=== PATIENT | male | born 1955 | race Caucasian/White ===

== ENCOUNTER 2023-02-19 19:05 | Inpatient (IN) | payer MEDICARE, OTHER ==
[2023-02-19 22:28] LABS: #Basophils 0.1 thou/uL (0.0-0.2); #Eosinphils 0.1 thou/uL (0.0-0.7); #Monocytes 0.8 thou/uL (0.11-0.59); #Neutrophils 8.8 thou/uL (1.40-6.50); %Basophils 0.4 % (0.0-1.0); %Eosinophils 1.1 % (0.0-10.0); %Lymphocytes 17.1 % (21.0-51.0); %Monocytes 6.4 % (0.0-10.0); %Neutrophils 74.7 % (42.0-75.0); Hematocrit 35.7 % (42.0-52.0); Mean Corpuscular HGB CONC 36.4 g/dL (32.0-36.0); Mean Corpuscular Hemoglobin 33.2 pg (27.0-31.0); Mean Corpuscular Volume 91.3 fl (78.0-98.0); Platelet Count 242 10x3/uL (130-400); RBC Distribution Width 13.5 % (11.5-14.5); Red Blood Cell (RBC) Count 3.91 mill/uL (4.70-6.10); White Blood Cell (WBC) Count 11.8 10x3/uL (4.8-10.8)
[2023-02-19 22:43] LABS: PTT 33.6 sec (22.9-36.1); Prothrombin Time 13.8 sec (12.0-14.7)
[2023-02-19 22:54] LABS: ALT (SGPT) 23 U/L (8-55); AST (SGOT) 20 U/L (5-34); Albumin 4.6 g/dL (3.4-4.8); Alkaline Phosphatase 70 U/L (40-110); Anion Gap 13 mmol/L (10-20); BUN (Urea Nitrogen) 11 mg/dL (8.4-25.7); Calc. Creatinine Clearance 0 mL/min (70-130); Calcium 9.6 mg/dL (7.8-10.44); Carbon Dioxide 26 mmol/L (23-31); Chloride 97 mmol/L (98-107); Estimated GFR 64; Globulin 2.2 g/dL (2.4-3.5); Glucose 153 mg/dL (80-115); Lipase 13 U/L (8-78); Magnesium 1.9 mg/dL (1.6-2.6); Potassium 3.8 mmol/L (3.5-5.1); Protein, Total 6.8 g/dL (5.8-8.1); Sodium 132 mmol/L (136-145)
[2023-02-19 22:56] LABS: Troponin I Less than 0.010 ng/mL (< 0.028)
[2023-02-19 22:58] LABS: Bilirubin, Total 0.5 mg/dL (0.2-1.2)
[2023-02-19] MEDS ORDERED: Ondansetron PF 4 MG/2 ML Vial IVP PRN (23:41)
[2023-02-19] MEDS ORDERED: Calcium Carbonate 500 MG ChewTAB PO PRN (23:41)
[2023-02-19] MEDS ORDERED: Ondansetron ODT 4 MG TAB PO PRN (23:41)
[2023-02-19] MEDS ORDERED: Aspirin 81 mg Enteric Coated Tablet PO SCH (23:45)
[2023-02-19] MEDS ORDERED: Simvastatin 10 MG TAB PO SCH (23:45)
[2023-02-19] MEDS ORDERED: Tamsulosin HCl 0.4 MG CAP PO SCH (23:45)
[2023-02-20] MEDS ORDERED: Aspirin 81 mg Enteric Coated Tablet ONE (02:15)
[2023-02-20 02:37] LABS: Troponin I Less than 0.010 ng/mL (< 0.028)
[2023-02-20 04:39] LABS: #Eosinphils 0.2 thou/uL (0.0-0.7); #Monocytes 0.8 thou/uL (0.11-0.59); #Neutrophils 6.5 thou/uL (1.40-6.50); %Basophils 0.4 % (0.0-1.0); %Eosinophils 2.4 % (0.0-10.0); %Lymphocytes 22.2 % (21.0-51.0); %Monocytes 7.9 % (0.0-10.0); %Neutrophils 66.7 % (42.0-75.0); Hematocrit 37.9 % (42.0-52.0); Hemoglobin 13.6 g/dL (14.0-18.0); Mean Corpuscular HGB CONC 35.9 g/dL (32.0-36.0); Mean Corpuscular Hemoglobin 33.4 pg (27.0-31.0); Mean Corpuscular Volume 93.1 fl (78.0-98.0); Mean Platelet Volume 9.1 fL (7.4-10.4); Platelet Count 249 10x3/uL (130-400); RBC Distribution Width 13.4 % (11.5-14.5); Red Blood Cell (RBC) Count 4.07 mill/uL (4.70-6.10); White Blood Cell (WBC) Count 9.7 10x3/uL (4.8-10.8)
[2023-02-20 05:05] LABS: Anion Gap 13 mmol/L (10-20); BUN (Urea Nitrogen) 9 mg/dL (8.4-25.7); Calc. Creatinine Clearance 73 mL/min (70-130); Calcium 9.5 mg/dL (7.8-10.44); Carbon Dioxide 25 mmol/L (23-31); Chloride 101 mmol/L (98-107); Estimated GFR 82; Glucose 96 mg/dL (80-115); Potassium 4.1 mmol/L (3.5-5.1); Sodium 135 mmol/L (136-145)
[2023-02-20 05:07] LABS: Troponin I Less than 0.010 ng/mL (< 0.028)
[2023-02-20] MEDS ORDERED: Tamsulosin HCl 0.4 MG CAP PO SCH (09:00)
[2023-02-20] MEDS ORDERED: Aspirin Chewable 81 MG TAB ONE (09:11)
[2023-02-20] MEDS: Aspirin 81 mg Enteric Coated Tablet PO SCH (09:36)
[2023-02-20] MEDS: Simvastatin 10 MG TAB PO SCH (20:12)
[2023-02-20] MEDS: dilTIAZem SR 90 MG CAP PO SCH (20:12)
[2023-02-21 04:27] LABS: #Basophils 0.1 thou/uL (0.0-0.2); #Eosinphils 0.2 thou/uL (0.0-0.7); #Monocytes 0.7 thou/uL (0.11-0.59); #Neutrophils 5.7 thou/uL (1.40-6.50); %Basophils 0.6 % (0.0-1.0); %Eosinophils 2.6 % (0.0-10.0); %Lymphocytes 25.3 % (21.0-51.0); %Monocytes 7.7 % (0.0-10.0); %Neutrophils 63.6 % (42.0-75.0); Hematocrit 36.6 % (42.0-52.0); Hemoglobin 12.9 g/dL (14.0-18.0); Mean Corpuscular HGB CONC 35.2 g/dL (32.0-36.0); Mean Corpuscular Hemoglobin 33.2 pg (27.0-31.0); Mean Corpuscular Volume 94.1 fl (78.0-98.0); Mean Platelet Volume 9.1 fL (7.4-10.4); Platelet Count 239 10x3/uL (130-400); RBC Distribution Width 13.5 % (11.5-14.5); Red Blood Cell (RBC) Count 3.89 mill/uL (4.70-6.10)
[2023-02-21 04:52] LABS: Anion Gap 13 mmol/L (10-20); BUN (Urea Nitrogen) 13 mg/dL (8.4-25.7); Calc. Creatinine Clearance 0 mL/min (70-130); Calcium 8.8 mg/dL (7.8-10.44); Carbon Dioxide 24 mmol/L (23-31); Cardiac Risk 3.1 (Less than 4.5); Chloride 100 mmol/L (98-107); Cholesterol 127 mg/dl (< 200 Desired); Estimated GFR 87; Glucose 86 mg/dL (80-115); HDL Cholesterol 41 mg/dL (>60 Neg Risk); LDL Cholesterol, Calculated 73 mg/dL; Sodium 133 mmol/L (136-145); Triglycerides 65 mg/dL (Less than 150)
[2023-02-21] MEDS ORDERED: Regadenoson 0.4 MG/5 ML SYRINGE ONE (08:03)
[2023-02-21] MEDS: Aspirin 81 mg Enteric Coated Tablet PO SCH (08:38)
[2023-02-21] MEDS: Tamsulosin HCl 0.4 MG CAP PO SCH (08:38)
[2023-02-21] MEDS: dilTIAZem SR 90 MG CAP PO SCH ×2 (08:38→20:03)
[2023-02-21] MEDS: Losartan 25 MG TAB PO SCH (08:39)
[2023-02-21] MEDS: Nicotine 14 MG PATCH TD SCH (14:14)
[2023-02-21] MEDS: Simvastatin 10 MG TAB PO SCH (20:03)
[2023-02-21] MEDS: Acetaminophen 325 MG TAB PO PRN (20:06)
[2023-02-22 03:37] LABS: #Eosinphils 0.2 thou/uL (0.0-0.7); #Monocytes 0.8 thou/uL (0.11-0.59); #Neutrophils 6.1 thou/uL (1.40-6.50); %Basophils 0.4 % (0.0-1.0); %Eosinophils 2.4 % (0.0-10.0); %Lymphocytes 23.6 % (21.0-51.0); %Monocytes 8.6 % (0.0-10.0); %Neutrophils 64.7 % (42.0-75.0); Hematocrit 40.1 % (42.0-52.0); Hemoglobin 14.3 g/dL (14.0-18.0); Mean Corpuscular HGB CONC 35.7 g/dL (32.0-36.0); Mean Corpuscular Hemoglobin 33.2 pg (27.0-31.0); Mean Platelet Volume 8.9 fL (7.4-10.4); Platelet Count 259 10x3/uL (130-400); RBC Distribution Width 13.1 % (11.5-14.5); Red Blood Cell (RBC) Count 4.31 mill/uL (4.70-6.10); White Blood Cell (WBC) Count 9.5 10x3/uL (4.8-10.8)
[2023-02-22 03:59] LABS: Anion Gap 15 mmol/L (10-20); BUN (Urea Nitrogen) 15 mg/dL (8.4-25.7); Calc. Creatinine Clearance 65 mL/min (70-130); Calcium 9.3 mg/dL (7.8-10.44); Carbon Dioxide 23 mmol/L (23-31); Chloride 99 mmol/L (98-107); Estimated GFR 74; Glucose 84 mg/dL (80-115); Potassium 3.8 mmol/L (3.5-5.1); Sodium 133 mmol/L (136-145)
[2023-02-22] MEDS ORDERED: Digoxin 0.5 MG/2 ML AMP SLOW IVP SCH (09:00)
[2023-02-22] MEDS: Nicotine 14 MG PATCH TD SCH (09:26)
[2023-02-22] MEDS: Aspirin 81 mg Enteric Coated Tablet PO SCH (09:28)
[2023-02-22] MEDS: Tamsulosin HCl 0.4 MG CAP PO SCH (09:29)
[2023-02-22] MEDS: dilTIAZem SR 90 MG CAP PO SCH ×2 (09:29→20:36)
[2023-02-22] MEDS: Flecainide Acetate 100 MG TAB PO SCH ×2 (09:34→20:36)
[2023-02-22] MEDS: Losartan 25 MG TAB PO SCH (09:35)
[2023-02-22 16:43] VITALS: BMI 21.8
[2023-02-22] MEDS: Atorvastatin Calcium 20 MG TAB PO SCH (20:36)
[2023-02-23 04:40] LABS: #Eosinphils 0.1 thou/uL (0.0-0.7); #Monocytes 0.8 thou/uL (0.11-0.59); #Neutrophils 6.6 thou/uL (1.40-6.50); %Basophils 0.4 % (0.0-1.0); %Eosinophils 0.8 % (0.0-10.0); %Lymphocytes 22.5 % (21.0-51.0); %Monocytes 8.3 % (0.0-10.0); %Neutrophils 67.8 % (42.0-75.0); Hematocrit 38.4 % (42.0-52.0); Hemoglobin 13.9 g/dL (14.0-18.0); Mean Corpuscular HGB CONC 36.2 g/dL (32.0-36.0); Mean Corpuscular Hemoglobin 32.9 pg (27.0-31.0); Mean Corpuscular Volume 90.8 fl (78.0-98.0); Mean Platelet Volume 9.4 fL (7.4-10.4); Platelet Count 255 10x3/uL (130-400); RBC Distribution Width 13.1 % (11.5-14.5); Red Blood Cell (RBC) Count 4.23 mill/uL (4.70-6.10); White Blood Cell (WBC) Count 9.8 10x3/uL (4.8-10.8)
[2023-02-23 05:01] LABS: Anion Gap 15 mmol/L (10-20); BUN (Urea Nitrogen) 15 mg/dL (8.4-25.7); Calc. Creatinine Clearance 75 mL/min (70-130); Calcium 9.2 mg/dL (7.8-10.44); Carbon Dioxide 22 mmol/L (23-31); Chloride 99 mmol/L (98-107); Estimated GFR 89; Glucose 95 mg/dL (80-115); Potassium 3.8 mmol/L (3.5-5.1); Sodium 132 mmol/L (136-145)
[2023-02-23] MEDS: Flecainide Acetate 100 MG TAB PO SCH (10:12)
[2023-02-23] MEDS: dilTIAZem SR 90 MG CAP PO SCH ×2 (10:12→20:58)
[2023-02-23] MEDS: Nicotine 14 MG PATCH TD SCH (10:13)
[2023-02-23] MEDS: Tamsulosin HCl 0.4 MG CAP PO SCH (10:13)
[2023-02-23] MEDS: Atorvastatin Calcium 20 MG TAB PO SCH (20:58)
[2023-02-24 07:19] LABS: #Eosinphils 0.1 thou/uL (0.0-0.7); #Monocytes 0.8 thou/uL (0.11-0.59); #Neutrophils 7.2 thou/uL (1.40-6.50); %Basophils 0.2 % (0.0-1.0); %Eosinophils 1.2 % (0.0-10.0); %Lymphocytes 15.6 % (21.0-51.0); %Monocytes 7.9 % (0.0-10.0); %Neutrophils 74.6 % (42.0-75.0); Hematocrit 37.8 % (42.0-52.0); Hemoglobin 13.5 g/dL (14.0-18.0); Mean Corpuscular HGB CONC 35.7 g/dL (32.0-36.0); Mean Corpuscular Hemoglobin 32.9 pg (27.0-31.0); Mean Corpuscular Volume 92.2 fl (78.0-98.0); Mean Platelet Volume 9.5 fL (7.4-10.4); Platelet Count 247 10x3/uL (130-400); RBC Distribution Width 13.1 % (11.5-14.5); White Blood Cell (WBC) Count 9.7 10x3/uL (4.8-10.8)
[2023-02-24 07:43] LABS: Anion Gap 12 mmol/L (10-20); BUN (Urea Nitrogen) 15 mg/dL (8.4-25.7); Calc. Creatinine Clearance 73 mL/min (70-130); Calcium 9.3 mg/dL (7.8-10.44); Carbon Dioxide 26 mmol/L (23-31); Chloride 100 mmol/L (98-107); Estimated GFR 89; Glucose 89 mg/dL (80-115); Potassium 3.7 mmol/L (3.5-5.1); Sodium 134 mmol/L (136-145)
[2023-02-24] MEDS: dilTIAZem SR 90 MG CAP PO SCH ×3 (08:48→20:18)
[2023-02-24] MEDS: Tamsulosin HCl 0.4 MG CAP PO SCH ×2 (08:49→10:31)
[2023-02-24] MEDS: Nicotine 14 MG PATCH TD SCH (08:53)
[2023-02-24] MEDS ORDERED: Losartan 25 MG TAB PO SCH (10:00)
[2023-02-24] MEDS: Apixaban 5 MG TAB PO SCH (20:17)
[2023-02-24] MEDS: Atorvastatin Calcium 20 MG TAB PO SCH (20:18)
[2023-02-25 05:44] LABS: #Eosinphils 0.3 thou/uL (0.0-0.7); #Monocytes 0.9 thou/uL (0.11-0.59); #Neutrophils 6.5 thou/uL (1.40-6.50); %Basophils 0.4 % (0.0-1.0); %Eosinophils 2.6 % (0.0-10.0); %Lymphocytes 22.1 % (21.0-51.0); %Monocytes 9.4 % (0.0-10.0); %Neutrophils 65.2 % (42.0-75.0); Hematocrit 38.9 % (42.0-52.0); Hemoglobin 13.8 g/dL (14.0-18.0); Mean Corpuscular HGB CONC 35.5 g/dL (32.0-36.0); Mean Corpuscular Hemoglobin 32.8 pg (27.0-31.0); Mean Corpuscular Volume 92.4 fl (78.0-98.0); Mean Platelet Volume 9.3 fL (7.4-10.4); Platelet Count 240 10x3/uL (130-400); RBC Distribution Width 13.2 % (11.5-14.5); Red Blood Cell (RBC) Count 4.21 mill/uL (4.70-6.10)
[2023-02-25 06:08] LABS: Anion Gap 15 mmol/L (10-20); BUN (Urea Nitrogen) 13 mg/dL (8.4-25.7); Calc. Creatinine Clearance 75 mL/min (70-130); Calcium 9.3 mg/dL (7.8-10.44); Carbon Dioxide 24 mmol/L (23-31); Chloride 100 mmol/L (98-107); Estimated GFR 90; Glucose 89 mg/dL (80-115); Sodium 135 mmol/L (136-145)
[2023-02-25] MEDS ORDERED: Flecainide 50 MG TAB PO SCH (08:00)
[2023-02-25] MEDS: dilTIAZem SR 90 MG CAP PO SCH ×2 (08:21→19:50)
[2023-02-25] MEDS: Tamsulosin HCl 0.4 MG CAP PO SCH (08:21)
[2023-02-25] MEDS: Nicotine 14 MG PATCH TD SCH (08:22)
[2023-02-25] MEDS: Apixaban 5 MG TAB PO SCH ×2 (08:22→19:50)
[2023-02-25] MEDS: Flecainide 50 MG TAB PO SCH ×2 (08:22→21:18)
[2023-02-25] MEDS: Losartan 25 MG TAB PO SCH (08:22)
[2023-02-25] MEDS: Atorvastatin Calcium 20 MG TAB PO SCH (19:50)
[2023-02-25] MEDS: Acetaminophen 325 MG TAB PO PRN (20:22)
[2023-02-26] MEDS: Flecainide 50 MG TAB PO SCH ×2 (09:29→20:28)
[2023-02-26] MEDS: Losartan 25 MG TAB PO SCH (09:29)
[2023-02-26] MEDS: Nicotine 14 MG PATCH TD SCH (09:30)
[2023-02-26] MEDS: Tamsulosin HCl 0.4 MG CAP PO SCH (09:30)
[2023-02-26] MEDS: Apixaban 5 MG TAB PO SCH ×2 (09:30→20:28)
[2023-02-26] MEDS: dilTIAZem SR 90 MG CAP PO SCH ×2 (09:30→20:28)
[2023-02-26] MEDS: Acetaminophen 325 MG TAB PO PRN (14:38)
[2023-02-26] MEDS: Atorvastatin Calcium 20 MG TAB PO SCH (20:28)
[2023-02-27] MEDS: Nicotine 14 MG PATCH TD SCH (09:18)
[2023-02-27] MEDS: Flecainide 50 MG TAB PO SCH (09:18)
[2023-02-27] MEDS: Tamsulosin HCl 0.4 MG CAP PO SCH (09:19)
[2023-02-27] MEDS: dilTIAZem SR 90 MG CAP PO SCH (09:19)
[2023-02-27] MEDS: Apixaban 5 MG TAB PO SCH (09:19)
[2023-02-27] MEDS: Losartan 25 MG TAB PO SCH (09:19)
[2023-02-27 12:03] VITALS: BP 129/63; TEMP 98.6
== END 2023-02-27 15:04 | disposition home or self-care (01) | DRG 309 ==
LOC: ERS 19:05 → ERHOLD 23:25 → 2SW 02-20 14:19 → OBSVTOIN 02-20 15:19
PROVIDERS: ADMIT Internal Medicine; ATTEND Internal Medicine
DX: I48.92 Unspecified atrial flutter (principal); E87.1 Hypo-osmolality and hyponatremia; I48.0 Paroxysmal atrial fibrillation; E78.5 Hyperlipidemia, unspecified; J44.9 Chronic obstructive pulmonary disease, unspecified; I10 Essential (primary) hypertension; K21.9 Gastro-esophageal reflux disease without esophagitis; M54.9 Dorsalgia, unspecified; G89.29 Other chronic pain; N40.0 Benign prostatic hyperplasia without lower urinary tract symptoms; D72.829 Elevated white blood cell count, unspecified; I95.9 Hypotension, unspecified; F19.10 Other psychoactive substance abuse, uncomplicated; I49.3 Ventricular premature depolarization; Z88.2 Allergy status to sulfonamides; Z71.6 Tobacco abuse counseling; Z82.49 Family history of ischemic heart disease and other diseases of the circulatory system
CPT/HCPCS: 36415; 71045; 78452; 80048; 80053; 80061; 83690; 83735; 83880; 84443; 84484; 85025; 85610; 85730; 93005; 93010; 93017; 93306; A9502; J1160; J1650; J2785

== ENCOUNTER 2024-03-09 09:53 | Outpatient (CLI) | payer MEDICARE ==
[2024-03-09 10:49] LABS: #Basophils Less than 0.03 10x3/uL (0.0-0.2); %Basophils 0.2 % (0.0-1.0); %Eosinophils 1.7 % (0.0-10.0); %Lymphocytes 19.2 % (21.0-51.0); %Neutrophils 68.7 % (42.0-75.0); Hematocrit 38.7 % (42.0-52.0); Hemoglobin 13.5 g/dL (14.0-18.0); Mean Corpuscular HGB CONC 34.9 g/dL (32.0-36.0); Mean Corpuscular Volume 88.8 fL (78.0-98.0); Mean Platelet Volume 9.3 fL (7.4-10.4); Platelet Count 246 10x3/uL (130-400); RBC Distribution Width 12.6 % (11.5-14.5); Red Blood Cell (RBC) Count 4.36 mill/uL (4.70-6.10)
[2024-03-09 11:04] LABS: INR-International Normal Ratio 1.3; Prothrombin Time 15.8 sec (12.0-14.7)
[2024-03-09 11:05] LABS: PTT 37.7 sec (22.9-36.1)
[2024-03-09 11:11] LABS: Anion Gap 13 mmol/L (10-20); BUN (Urea Nitrogen) 10 mg/dL (8.4-25.7); Calc. Creatinine Clearance 0 mL/min (70-130); Carbon Dioxide 24 mmol/L (23-31); Chloride 101 mmol/L (98-107); Estimated GFR 93; Glucose 101 mg/dL (80-115); Potassium 3.8 mmol/L (3.5-5.1); Sodium 134 mmol/L (136-145)
== END 2024-03-09 09:54 | disposition home or self-care (01) ==
LOC: LABBT 09:53
PROVIDERS: ATTEND Internal Medicine Cardiovascular Disease
DX: Z01.812 Encounter for preprocedural laboratory examination (principal); I48.4 Atypical atrial flutter
CPT/HCPCS: 80048; 85025; 85610; 85730

== ENCOUNTER 2024-03-15 10:10 | Day surgery (SDC) | payer MEDICARE ==
[2024-03-09 10:10] VITALS: BMI 29.0
[2024-03-15] MEDS ORDERED: Protamine Sulfate 50 MG/5 ML VIAL ONE ×2 (11:25→16:01)
[2024-03-15] MEDS ORDERED: Heparin 10,000 UNITS/ 10 ML VIAL ONE (11:25)
[2024-03-15] MEDS ORDERED: Heparin 25,000 units/D5W 500 ML ONE (11:26)
[2024-03-15] MEDS ORDERED: Isoproterenol 0.2 MG/1 ML AMP ONE (11:26)
[2024-03-15] MEDS ORDERED: fentaNYL 50 mcg/mL 1 mL Vial ONE (13:10)
[2024-03-15] MEDS ORDERED: Midazolam HCl 2 mg/2 ml Vial ONE (13:10)
[2024-03-15] MEDS ORDERED: SUGAMMADEX SODIUM 200 MG/2 ML VIAL ONE (16:01)
[2024-03-15] MEDS ORDERED: Ketorolac Tromethamine 30 MG (1 mL) VIAL ONE (16:25)
== END 2024-03-15 20:05 | disposition home or self-care (01) ==
LOC: SDC 10:10
PROVIDERS: ATTEND Internal Medicine Cardiovascular Disease
PROC: 4A023FZ Measurement of Cardiac Rhythm, Percutaneous Approach (ICD-10-PCS; principal; 2024-03-15)
DX: I48.4 Atypical atrial flutter (principal); I49.3 Ventricular premature depolarization; I48.0 Paroxysmal atrial fibrillation; I10 Essential (primary) hypertension; E78.5 Hyperlipidemia, unspecified; K21.9 Gastro-esophageal reflux disease without esophagitis; N40.0 Benign prostatic hyperplasia without lower urinary tract symptoms; Z87.891 Personal history of nicotine dependence; Z88.2 Allergy status to sulfonamides; Z79.01 Long term (current) use of anticoagulants; Z79.899 Other long term (current) drug therapy
CPT/HCPCS: 85347 ×2; 93623; 93656; 93657; C1730; C1732; C1733; C1759; C1760 ×2; C1766; C1769; C1894; J1644 ×2; J2250; J2720; J3010; 93005; 93010; J1885

== ENCOUNTER 2024-03-16 09:09 | Emergency (ER) | payer MEDICARE | END 2024-03-16 13:10 | disposition home or self-care (01) | LOC: ERS 09:09 | DX: R10.31 Right lower quadrant pain (principal); I48.91 Unspecified atrial fibrillation; I10 Essential (primary) hypertension; Z87.891 Personal history of nicotine dependence; Z79.01 Long term (current) use of anticoagulants; Z79.899 Other long term (current) drug therapy | CPT/HCPCS: 76936 ==

== ENCOUNTER 2024-05-13 06:34 | Day surgery (SDC) | payer MEDICARE ==
[2024-05-12 11:14] VITALS: BMI 29.0
[2024-05-13 07:05] LABS: #Basophils 0.04 10x3/uL (0.0-0.2); %Basophils 0.5 % (0.0-1.0); %Eosinophils 3.1 % (0.0-10.0); %Lymphocytes 21.2 % (21.0-51.0); %Monocytes 9.5 % (0.0-10.0); %Neutrophils 65.1 % (42.0-75.0); Hematocrit 40.5 % (42.0-52.0); Hemoglobin 13.9 g/dL (14.0-18.0); Mean Corpuscular HGB CONC 34.3 g/dL (32.0-36.0); Mean Corpuscular Volume 90.4 fL (78.0-98.0); Platelet Count 231 10x3/uL (130-400); RBC Distribution Width 13.1 % (11.5-14.5); Red Blood Cell (RBC) Count 4.48 mill/uL (4.70-6.10)
[2024-05-13 07:19] LABS: INR-International Normal Ratio 1.3; PTT 39.1 sec (22.9-36.1); Prothrombin Time 16.6 sec (12.0-14.7)
[2024-05-13 07:50] LABS: Anion Gap 14 mmol/L (10-20); BUN (Urea Nitrogen) 11 mg/dL (8.4-25.7); Calc. Creatinine Clearance 80 mL/min (70-130); Calcium 9.1 mg/dL (7.8-10.44); Carbon Dioxide 23 mmol/L (23-31); Chloride 105 mmol/L (98-107); Estimated GFR 79; Glucose 90 mg/dL (80-115); Potassium 4.1 mmol/L (3.5-5.1); Sodium 138 mmol/L (136-145)
[2024-05-13] MEDS ORDERED: PROPOFOL 200 MG/20 ML VIAL ONE (08:43)
[2024-05-13] MEDS ORDERED: Lidocaine 1% PF 5 ML VIAL ONE (08:43)
== END 2024-05-13 09:40 | disposition home or self-care (01) ==
LOC: SDC 06:34
PROVIDERS: ATTEND Internal Medicine Cardiovascular Disease
PROC: 5A2204Z Restoration of Cardiac Rhythm, Single (ICD-10-PCS; principal; 2024-05-13)
DX: I48.4 Atypical atrial flutter (principal); I49.3 Ventricular premature depolarization; I48.0 Paroxysmal atrial fibrillation; R00.1 Bradycardia, unspecified; I10 Essential (primary) hypertension; Z87.891 Personal history of nicotine dependence; Z98.890 Other specified postprocedural states; Z88.2 Allergy status to sulfonamides; Z79.01 Long term (current) use of anticoagulants; Z79.899 Other long term (current) drug therapy
CPT/HCPCS: 80048; 85025; 85610; 85730; 92960; 93005; J2704; 93010